=== PATIENT | male | born 1960 | race Two or more races ===

== ENCOUNTER 2024-10-15 08:31 | Emergency (ER) | payer MEDICAID, OTHER ==
[~2024-10-15] VITALS: Ht 175.3 cm; Wt 83.0 kg
[2024-10-15 08:33] VITALS: O2SAT 98
[2024-10-15 08:59] LABS: BASOPHILS % 0.6 % (0.0-2.0); EOSINOPHILS % 2.5 % (0.0-5.0); HEMATOCRIT. 28.3 % (42.0-52.0); HEMOGLOBIN. 9.6 g/dL (14.0-18.0); MEAN CORPUSCULAR HEMOGLOBIN 31.8 pg (28.0-32.0); MEAN CORPUSCULAR HGB CONC 33.8 g/dL (31.0-37.0); MEAN CORPUSCULAR VOLUME 94.2 fL (80.0-94.0); MEAN PLATELET VOLUME 7.9 fl (7.4-10.4); MONOCYTES % 5.9 % (2.0-8.0); PLATELET 201 x1000/uL (130-400); RED CELL DISTRIBUTION WIDTH 14.4 % (11.6-14.6); WHITE BLOOD COUNT 7.5 x1000/uL (4.5-11.0)
[2024-10-15 09:13] LABS: CHLORIDE 102 mEq/L (98-107); POTASSIUM 3.6 mEq/L (3.5-5.1); SODIUM 134 mEq/L (136-145)
[2024-10-15 09:14] LABS: CARBON DIOXIDE 22 mEq/L (21-32)
[2024-10-15 09:15] LABS: CALCIUM 8.8 mg/dL (8.7-10.4)
[2024-10-15 09:20] LABS: CREATININE 4.1 mg/dL (0.6-1.3); GLUCOSE 98 mg/dL (70-105); UREA NITROGEN BLOOD 47 mg/dL (9-23)
[2024-10-15 09:47] LABS: TROPONIN I HIGH SENSITIVITY 67 ng/L (3.0-53)
[2024-10-15 11:30] VITALS: BP 128/76; PULSE 85; RESP 18; TEMP 36.66960; O2SAT 98
== END 2024-10-15 11:55 | disposition left against medical advice (07) ==
LOC: ER 08:39
DX: R00.2 Palpitations (principal); E11.22 Type 2 diabetes mellitus with diabetic chronic kidney disease; N18.6 End stage renal disease; I12.0 Hypertensive chronic kidney disease with stage 5 chronic kidney disease or end stage renal disease; Z99.2 Dependence on renal dialysis
CPT/HCPCS: 80048; 83880; 85025; 84484; 36415; 71045; 93005; 99285; Z7610 ×2; C1893